=== PATIENT | female | born 1960 | race Caucasian/White ===

== ENCOUNTER → 2016-08-13 | Outpatient (CLI) | payer BC ==
[2016-08-13 07:49] LABS: Anisocytosis Slight; Basophils # (A) 0.1 k/uL (0-0.2); Basophils % (A) 1 %; CH 20.4; CHCM 27.7; Eosinophils # (A) 0.2 k/uL (0-0.7); Eosinophils % (A) 2 %; HCT 28.9 % (34.0-46.0); HDW 3.71; HGB 8.2 gm/dL (11.4-16.0); Hypochromasia Marked; Luc # (Auto) 0.22; Luc % (Auto) 4; Lymphocytes # (A) 1.5 k/uL (1.0-4.8); Lymphocytes % (A) 24 %; MCH 21.2 pg (25.0-35.0); MCHC 28.5 g/dL (31.0-37.0); MCV 74.2 fL (80.0-100.0); Mean Platelet Volume 6.5; Microcytosis Slight; Monocytes # (A) 0.3 k/uL (0-1.0); Monocytes % (A) 5 %; Neutrophils # (A) 4.1 k/uL (1.3-7.7); Neutrophils % (A) 64 %; Poikilocytosis Slight; RBC 3.89 m/uL (3.80-5.40); RDW 16.1 % (11.5-15.5); WBC 6.3 k/uL (3.8-10.6); WBC (Perox) 6.88
[2016-08-13 08:02] LABS: ALT 26 U/L (9-52); AST 16 U/L (14-36); Alkaline Phosphatase 88 U/L (38-126); Anion Gap 10 mmol/L; Blood Urea Nitrogen 16 mg/dL (7-17); Calcium 9.2 mg/dL (8.4-10.2); Carbon Dioxide 28 mmol/L (22-30); Chloride 104 mmol/L (98-107); Cholesterol 200 mg/dL (<200); Glucose 112 mg/dL (74-99); HDL Cholesterol 39 mg/dL (40-60); Non-African American GFR(MDRD) >60 (>60 ml/min/1.73 sqM); Potassium 4.2 mmol/L (3.5-5.1); Sodium 142 mmol/L (137-145); Total Bilirubin 0.4 mg/dL (0.2-1.3); Total Protein 6.9 g/dL (6.3-8.2); Triglycerides 254 mg/dL (<150)
[2016-08-13 10:54] LABS: Hemoglobin A1C 6.3 % (4.2-6.1)
== END | disposition home or self-care (01) ==
LOC: LABWHC1 07:22
PROVIDERS: ATTEND Family Medicine
DX: E11.9 Type 2 diabetes mellitus without complications (principal); E78.00 Pure hypercholesterolemia, unspecified; E03.9 Hypothyroidism, unspecified
CPT/HCPCS: 36415; 80053; 80061; 83036; 84439; 84443; 85025

== ENCOUNTER → 2016-08-16 | Outpatient (CLI) | payer BC ==
[2016-08-16 11:10] LABS: % Iron Saturation 4.2 % (20-50)
== END | disposition home or self-care (01) ==
LOC: LABWHC1 10:13
PROVIDERS: ATTEND Family Medicine
DX: D64.9 Anemia, unspecified (principal)
CPT/HCPCS: 36415; 82728; 83540; 83550

== ENCOUNTER 2016-08-29 08:01 | Day surgery (SDC) | payer BC ==
[2016-08-23 11:13] VITALS: BMI 37.4
[~2016-08-29 08:01] MED LIST: LACTATED RINGERS 1,000 ML IV SCH; LIDOCAINE 1% 20 ML VIAL (10MG/ML) FOR IV START INTRADERMA PRN
[2016-08-29 08:30] LABS: Glucose,Whole Blood 123 mg/dL (75-99)
[2016-08-29] MEDS ORDERED: ePHEDrine 50 MG/ML 1 ML AMP ONE (08:49)
[2016-08-29] MEDS ORDERED: PROPOFOL 10 MG/ML 20 ML VIAL IV ONE (08:49)
[2016-08-29] MEDS ORDERED: LIDOCAINE 1% INJ 10MG/ML (20 ML MDV) ONE (08:49)
--- NOTE | 2016-08-29 09:05 | P.GSHP ---
History of Present Illness H&P Date: 08/29/16 Chief Complaint: Anemia, screening Patient is here today for upper and lower endoscopy. She has recent findings of iron deficiency anemia. Denies rectal bleeding or melena. She had a previous upper endoscopy that was normal. Some chronic reflux symptoms. Past Medical History Past Medical History: Diabetes Mellitus, Hypertension, Osteoarthritis (OA), Thyroid Disorder Additional Past Medical History / Comment(s): anemia,intermittent nausea, chronic back pain,arthritis in back,hypothyroid History of Any Multi-Drug Resistant Organisms: None Reported Past Surgical History: Cholecystectomy, Uterine Ablation Additional Past Surgical History / Comment(s): uterine ablation 2006,EGD,D&C Past Anesthesia/Blood Transfusion Reactions: Previous Problems w/ Anesthesia, Family History of Problems w/ Anesthesia Additional Past Anesthesia/Blood Transfusion Reaction / Comment(s): mother has PONV,hx of migraine post anesthesia,no hx blood transfusion Past Psychological History: Depression Smoking Status: Never smoker Past Alcohol Use History: Occasional Past Drug Use History: None Reported - Past Family History Brother(s) Additional Family Medical History / Comment(s): ulcerative colitis Mother Family Medical History: Cancer, CVA/TIA, Myocardial Infarction ([place]) Additional Family Medical History / Comment(s): melanoma Father Family Medical History: Coronary Artery Disease (CAD) Medications and Allergies Home Medications Medication Instructions Recorded Confirmed Type Cetirizine HCl [Zyrtec] 10 mg PO DAILY 12/02/14 08/29/16 History Cholecalciferol [Vitamin D3] 1,000 unit PO DAILY 12/02/14 08/29/16 History Lansoprazole [Prevacid] 30 mg PO BID 12/02/14 08/29/16 History Levothyroxine Sodium [Synthroid] 150 mcg PO QAM 12/02/14 08/29/16 History SUMAtriptan SUCCINATE [Imitrex] 50 mg PO DAILY PRN 12/02/14 08/29/16 History Sertraline HCl [Zoloft] 200 mg PO QAM 12/02/14 08/29/16 History Triamterene/Hydrochlorothiazid 1 each PO DAILY 12/02/14 08/29/16 History [Dyazide 37.5-25 Capsule] metFORMIN HCL [Glucophage] 500 mg PO DAILY 12/02/14 08/29/16 History Aspirin/Acetaminophen/Caffeine 1 each PO DAILY PRN 04/19/15 08/29/16 History [Excedrin Extra Strength Caplet] Rosuvastatin Calcium [Crestor] 5 mg PO DAILY 04/19/15 08/29/16 History Cyanocobalamin (Vitamin B-12) 1,000 mcg PO DAILY 08/23/16 08/29/16 History [Vitamin B-12] Gabapentin [Neurontin] 600 mg PO HS PRN 08/23/16 08/29/16 History Ibuprofen/Diphenhydramine HCl 1 each PO DAILY PRN 08/23/16 08/29/16 History [Advil Pm Liqui-Gels] Prochlorperazine [Compazine] 10 mg PO Q8H PRN 08/23/16 08/29/16 History traMADol HCl [Ultram] 100 mg PO Q6H PRN 08/23/16 08/29/16 History Allergies Allergy/AdvReac Type Severity Reaction Status Date / Time nitrofurantoin Allergy Anaphylaxis Verified 08/23/16 11:01 [From Macrobid] nitrofurantoin Allergy Anaphylaxis Verified 08/23/16 11:01 macrocrystalline [From Macrobid] Penicillins Allergy Rash/Hives Verified 08/23/16 11:01 Sulfa (Sulfonamide Allergy Rash/Hives Verified 08/23/16 11:01 Antibiotics) Surgical - Exam Vital Signs Temp Pulse Resp BP Pulse Ox 98.2 F 84 16 130/78 95 08/29/16 08:24 08/29/16 08:24 08/29/16 08:24 08/29/16 08:24 08/29/16 08:24 Physical exam: General: Well-developed, well-nourished HEENT: Normocephalic, sclerae nonicteric Abdomen: Nontender, nondistended Extremities: No edema Neuro: Alert and oriented Results - Labs Abnormal Lab Results - Last 24 Hours (Table) 08/29/16 Range/Units 08:29 POC Glucose (mg/dL) 123 H (75-99) mg/dL Assessment and Plan (1) Anemia Narrative/Plan: Will proceed with upper and lower endoscopy. Status: Acute
--- NOTE | 2016-08-29 09:38 | P.PCN ---
Date of Procedure: 08/29/16 Procedure(s) Performed: PREOPERATIVE DIAGNOSIS: Anemia, screening POSTOPERATIVE DIAGNOSIS: Gastritis, hiatal hernia, colon polyps, diverticulosis PROCEDURE: 1. EGD with biopsy 2. Colonoscopy with snare polypectomy ANESTHESIA: MAC SURGEON: Puma Meyers M.D. SPECIMENS: Antrum, colon polyps ENDOSCOPIC PROCEDURE: The patient was on the endoscopy table in the left decubitus position. The Olympus gastroscope was inserted into the oropharynx and passed under direct visualization to the region of the third portion of the duodenum. From that point the scope was slowly withdrawn inspecting all surfaces carefully. There were no neoplastic inflammatory or polypoid lesions throughout the duodenum. The pylorus was widely patent. The stomach was carefully inspected. There was diffuse gastritis present. This did not appear to be severe enough to cause anemia however. Retroflexion revealed a moderate hiatal hernia. The stomach above the hiatus did not show any significant abnormalities. The esophagus was free of abnormalities. The patient was kept on the endoscopy table in the left decubitus position. The Olympus colonoscope was inserted into the anus and passed under direct visualization to the base of the cecum. The appendiceal orifice was visualized. From that point the scope was slowly withdrawn inspecting all surfaces carefully. There were no neoplastic inflammatory or polypoid lesions throughout the cecum and ascending colon. In the transverse colon a pedunculated polyp was identified and removed using the snare with cautery technique. The remainder of the transverse colon appeared normal. In the descending colon a small polyp was removed using the snare with cautery technique. The remainder of the descending sigmoid and rectum were free of abnormalities. The patient's prep was slightly suboptimal although I was able to remove most of the liquid stool present using the cook larder. There was mild diverticulosis seen. No definite source of anemia was identified during the colonoscopy. Digital rectal examination was normal. The patient was taken to the recovery room in stable condition per anesthesia guidelines. RECOMMENDATIONS: Wait biopsy results. Continue anemia workup.
[2016-08-29 09:50] VITALS: TEMP 98
[2016-08-29 09:54] LABS: Glucose,Whole Blood 112 mg/dL (75-99)
[2016-08-29 10:51] VITALS: RESP 18
[2016-08-29 11:23] VITALS: BP 127/76; PULSE 76
== END 2016-08-29 11:45 | disposition home or self-care (01) ==
LOC: ORWHC2ENDO 08:01
PROVIDERS: ATTEND Surgery
DX: Z12.11 Encounter for screening for malignant neoplasm of colon (principal); K29.50 Unspecified chronic gastritis without bleeding; K21.9 Gastro-esophageal reflux disease without esophagitis; D12.3 Benign neoplasm of transverse colon; D12.4 Benign neoplasm of descending colon; K57.30 Diverticulosis of large intestine without perforation or abscess without bleeding; Z83.79 Family history of other diseases of the digestive system; E78.5 Hyperlipidemia, unspecified; I10 Essential (primary) hypertension; E11.9 Type 2 diabetes mellitus without complications; Z79.84 Long term (current) use of oral hypoglycemic drugs; E03.9 Hypothyroidism, unspecified; F32.9 Major depressive disorder, single episode, unspecified; E66.01 Morbid (severe) obesity due to excess calories; Z68.37 Body mass index [BMI] 37.0-37.9, adult; Z79.899 Other long term (current) drug therapy; Z88.1 Allergy status to other antibiotic agents; Z88.0 Allergy status to penicillin; Z88.2 Allergy status to sulfonamides
CPT/HCPCS: 81025; 88305; 88342; 45385; 43239; J2001; J2704

== ENCOUNTER → 2017-01-04 | Outpatient (CLI) | payer BC ==
[2017-01-04 13:44] LABS: Basophils # (A) 0.1 k/uL (0-0.2); Basophils % (A) 1 %; CHCM 33.6; Eosinophils # (A) 0.1 k/uL (0-0.7); Eosinophils % (A) 1 %; HCT 45.4 % (34.0-46.0); HDW 2.67; HGB 15.5 gm/dL (11.4-16.0); Luc # (Auto) 0.13; Luc % (Auto) 2; Lymphocytes # (A) 1.2 k/uL (1.0-4.8); Lymphocytes % (A) 17 %; MCH 30.4 pg (25.0-35.0); MCHC 34.1 g/dL (31.0-37.0); MCV 89.2 fL (80.0-100.0); Mean Platelet Volume 7.3; Monocytes # (A) 0.3 k/uL (0-1.0); Monocytes % (A) 4 %; Neutrophils # (A) 5.4 k/uL (1.3-7.7); Neutrophils % (A) 75 %; RBC 5.08 m/uL (3.80-5.40); RDW 15.6 % (11.5-15.5); WBC 7.2 k/uL (3.8-10.6); WBC (Perox) 7.53
== END | disposition home or self-care (01) ==
LOC: LABWHC1 13:04
PROVIDERS: ATTEND Urology
DX: D64.89 Other specified anemias (principal)
CPT/HCPCS: 36415; 83540; 85025

== ENCOUNTER → 2017-02-07 | Outpatient (CLI) | payer BC ==
[2017-02-07 08:20] LABS: ALT 39 U/L (9-52); AST 21 U/L (14-36); Alkaline Phosphatase 113 U/L (38-126); Anion Gap 11 mmol/L; Blood Urea Nitrogen 15 mg/dL (7-17); Calcium 9.9 mg/dL (8.4-10.2); Carbon Dioxide 28 mmol/L (22-30); Chloride 102 mmol/L (98-107); Cholesterol 231 mg/dL (<200); Glucose 128 mg/dL (74-99); HDL Cholesterol 45 mg/dL (40-60); Non-African American GFR(MDRD) >60 (>60 ml/min/1.73 sqM); Potassium 4.6 mmol/L (3.5-5.1); Sodium 141 mmol/L (137-145); Total Bilirubin 0.4 mg/dL (0.2-1.3); Total Protein 6.8 g/dL (6.3-8.2)
[2017-02-07 12:17] LABS: Hemoglobin A1C 6.3 % (4.2-6.1)
== END | disposition home or self-care (01) ==
LOC: LABWHC1 07:18
PROVIDERS: ATTEND Family Medicine
DX: E78.00 Pure hypercholesterolemia, unspecified (principal); E11.9 Type 2 diabetes mellitus without complications
CPT/HCPCS: 36415; 80053; 80061; 83036

== ENCOUNTER → 2017-05-18 | Outpatient (CLI) | payer BC ==
[2017-05-18 10:33] LABS: Basophils # (A) 0.1 k/uL (0-0.2); Basophils % (A) 1 %; Eosinophils # (A) 0.1 k/uL (0-0.7); Eosinophils % (A) 1 %; HCT 45.1 % (34.0-46.0); HGB 15.3 gm/dL (11.4-16.0); Lymphocytes # (A) 1.4 k/uL (1.0-4.8); Lymphocytes % (A) 20 %; MCH 31.6 pg (25.0-35.0); MCHC 33.9 g/dL (31.0-37.0); MCV 93.1 fL (80.0-100.0); Monocytes # (A) 0.3 k/uL (0-1.0); Monocytes % (A) 5 %; Neutrophils # (A) 4.7 k/uL (1.3-7.7); Neutrophils % (A) 71 %; Platelet Count 316 k/uL (150-450); RBC 4.85 m/uL (3.80-5.40); RDW 13.5 % (11.5-15.5); WBC 6.6 k/uL (3.8-10.6)
[2017-05-18 20:22] LABS: Hemoglobin A1C 5.8 % (4.0-6.0)
== END | disposition home or self-care (01) ==
LOC: LABWHC1 10:08
PROVIDERS: ATTEND Family Medicine
DX: D64.9 Anemia, unspecified (principal); E11.9 Type 2 diabetes mellitus without complications
CPT/HCPCS: 36415; 83036; 85025

== ENCOUNTER → 2017-08-28 | Outpatient (CLI) | payer BC ==
[2017-08-28 08:06] LABS: Basophils # (A) 0.1 k/uL (0-0.2); Basophils % (A) 1 %; Eosinophils # (A) 0.2 k/uL (0-0.7); Eosinophils % (A) 2 %; HCT 43.2 % (34.0-46.0); HGB 14.6 gm/dL (11.4-16.0); Lymphocytes # (A) 1.3 k/uL (1.0-4.8); Lymphocytes % (A) 17 %; MCH 30.5 pg (25.0-35.0); MCHC 33.7 g/dL (31.0-37.0); MCV 90.6 fL (80.0-100.0); Mean Platelet Volume 7.8; Monocytes # (A) 0.3 k/uL (0-1.0); Monocytes % (A) 5 %; Neutrophils # (A) 5.8 k/uL (1.3-7.7); Neutrophils % (A) 75 %; Platelet Count 351 k/uL (150-450); RBC 4.77 m/uL (3.80-5.40); RDW 13.1 % (11.5-15.5); WBC 7.7 k/uL (3.8-10.6)
[2017-08-28 08:24] LABS: ALT 22 U/L (9-52); AST 21 U/L (14-36); Albumin 4.2 g/dL (3.5-5.0); Alkaline Phosphatase 98 U/L (38-126); Anion Gap 12 mmol/L; Blood Urea Nitrogen 16 mg/dL (7-17); Calcium 9.7 mg/dL (8.4-10.2); Carbon Dioxide 29 mmol/L (22-30); Chloride 102 mmol/L (98-107); Cholesterol 268 mg/dL (<200); Glucose 122 mg/dL (74-99); HDL Cholesterol 39 mg/dL (40-60); LDL Cholesterol,Calculated 160 mg/dL (0-99); Potassium 4.1 mmol/L (3.5-5.1); Sodium 143 mmol/L (137-145); Total Bilirubin 0.3 mg/dL (0.2-1.3); Total Protein 6.7 g/dL (6.3-8.2); Triglycerides 343 mg/dL (<150)
[2017-08-28 12:02] LABS: Hemoglobin A1C 5.9 % (4.0-6.0)
--- NOTE | 2017-08-29 10:08 | MM ---
Reason for exam: screening (asymptomatic). Last mammogram was performed 1 year and 9 months ago. History: Patient is postmenopausal and had first child at age 34. Family history of breast cancer in maternal grandmother at age 70. Took hormonal contraceptives for 12 years beginning at age 21. Physical Findings: A clinical breast exam by your physician is recommended on an annual basis and results should be correlated with mammographic findings. MG Screening Mammo w CAD Bilateral CC and MLO view(s) were taken. Prior study comparison: December 06, 2015, bilateral MG screening mammo w CAD. July 15, 2014, bilateral MG screening mammo w CAD. Benign calcifications bilaterally. There is chronic nodularity in the left breast. No significant changes when compared with prior studies. ASSESSMENT: Benign, BI-RAD 2 RECOMMENDATION: Routine screening mammogram of both breasts in 1 year.
== END | disposition home or self-care (01) ==
LOC: RADMAMWWP 07:31
PROVIDERS: ATTEND Family Medicine
DX: Z12.31 Encounter for screening mammogram for malignant neoplasm of breast (principal); E03.9 Hypothyroidism, unspecified; E11.9 Type 2 diabetes mellitus without complications; E78.00 Pure hypercholesterolemia, unspecified; D64.9 Anemia, unspecified
CPT/HCPCS: 36415; 77067; 80053; 80061; 83036; 84439; 84443; 85025

== ENCOUNTER → 2018-07-14 | Outpatient (CLI) | payer MEDICAID ==
[2018-07-14 11:22] LABS: LDL Cholesterol,Calculated 146.2 mg/dL (0.0-131.0); VLDL Calculation 50.8 mg/dL (5.00-40.00)
[2018-07-14 11:23] LABS: Albumin 4.6 g/dL (3.80-4.90); Albumin/Globulin Ratio 2.42 (1.60-3.17); Anion Gap 9.3 mmol/L (4.00-12.00); Calcium 9.7 mg/dL (8.7-10.3); Carbon Dioxide 30.7 mmol/L (21.6-31.8); Globulin 1.9 g/dL (1.6-3.3); Total Bilirubin 0.2 mg/dL (0.2-1.2); Total Protein 6.5 g/dL (6.2-8.2)
[2018-07-14 15:18] LABS: Hemoglobin A1C 6.1 % (4.0-6.0)
== END | disposition home or self-care (01) ==
LOC: LABWHC1 06:45
PROVIDERS: ATTEND Family Medicine
DX: E78.00 Pure hypercholesterolemia, unspecified (principal); E11.9 Type 2 diabetes mellitus without complications
CPT/HCPCS: 36415; 80053; 80061; 83036

== ENCOUNTER → 2018-11-27 | Outpatient (CLI) | payer MEDICAID ==
[2018-11-27 08:15] LABS: Basophils # (A) 0.1 k/uL (0-0.2); Basophils % (A) 1 %; Eosinophils # (A) 0.3 k/uL (0-0.7); Eosinophils % (A) 4 %; HCT 44.2 % (34.0-46.0); HGB 14.6 gm/dL (11.4-16.0); Lymphocytes # (A) 1.5 k/uL (1.0-4.8); Lymphocytes % (A) 21 %; MCH 30.8 pg (25.0-35.0); MCHC 33.1 g/dL (31.0-37.0); Mean Platelet Volume 7.7; Monocytes # (A) 0.4 k/uL (0-1.0); Monocytes % (A) 5 %; Neutrophils # (A) 4.8 k/uL (1.3-7.7); Neutrophils % (A) 67 %; Platelet Count 342 k/uL (150-450); RBC 4.75 m/uL (3.80-5.40); RDW 12.8 % (11.5-15.5); WBC 7.2 k/uL (3.8-10.6)
[2018-11-27 08:18] LABS: ALT 25 U/L (9-52); AST 23 U/L (14-36); African American GFR (CKD) >90 (>60 ml/min/1.73 sqM); Albumin 4.2 g/dL (3.5-5.0); Alkaline Phosphatase 92 U/L (38-126); Anion Gap 8 mmol/L; Blood Urea Nitrogen 29 mg/dL (7-17); Calcium 10.5 mg/dL (8.4-10.2); Carbon Dioxide 32 mmol/L (22-30); Chloride 99 mmol/L (98-107); Cholesterol 232 mg/dL (<200); Glucose 131 mg/dL (74-99); HDL Cholesterol 40 mg/dL (40-60); LDL Cholesterol,Calculated 135 mg/dL (0-99); Potassium 3.9 mmol/L (3.5-5.1); Sodium 139 mmol/L (137-145); Total Bilirubin 0.4 mg/dL (0.2-1.3); Total Protein 6.9 g/dL (6.3-8.2); Triglycerides 284 mg/dL (<150)
[2018-11-27 17:59] LABS: Hemoglobin A1C 6.2 % (4.0-6.0)
--- NOTE | 2018-12-01 09:33 | MM ---
Reason for exam: screening (asymptomatic). Last mammogram was performed 1 year and 3 months ago. History: Patient is postmenopausal and had first child at age 34. Family history of breast cancer in maternal grandmother at age 70. Took hormonal contraceptives for 12 years beginning at age 21. Physical Findings: A clinical breast exam by your physician is recommended on an annual basis and results should be correlated with mammographic findings. MG Screening Mammo w CAD Bilateral CC and MLO view(s) were taken. Prior study comparison: August 28, 2017, bilateral MG screening mammo w CAD. December 06, 2015, bilateral MG screening mammo w CAD. No significant changes when compared with prior studies. ASSESSMENT: Benign, BI-RAD 2 RECOMMENDATION: Routine screening mammogram of both breasts in 1 year.
== END | disposition home or self-care (01) ==
LOC: RADMAMWWP 07:17
PROVIDERS: ATTEND Family Medicine
DX: Z12.31 Encounter for screening mammogram for malignant neoplasm of breast (principal); E78.00 Pure hypercholesterolemia, unspecified; E11.9 Type 2 diabetes mellitus without complications; E03.9 Hypothyroidism, unspecified
CPT/HCPCS: 77067; 80053; 80061; 83036; 84443; 85025

== ENCOUNTER 2018-12-05 16:09 | Emergency (ER) | payer OTHER, MEDICAID ==
[2018-12-05 16:23] VITALS: BP 119/82; PULSE 111; RESP 18; TEMP 97.9
[2018-12-05] MEDS ORDERED: DIPH,PERTUS(ACELL)TETVAC-LF 0.5 ML VIAL IM ONE (16:37)
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
== END 2018-12-05 17:12 | disposition home or self-care (01) ==
LOC: EC 16:09
DX: S50.811A Abrasion of right forearm, initial encounter (principal); M25.511 Pain in right shoulder; E11.9 Type 2 diabetes mellitus without complications; I10 Essential (primary) hypertension; E03.9 Hypothyroidism, unspecified; F32.9 Major depressive disorder, single episode, unspecified; Z88.0 Allergy status to penicillin; Z88.1 Allergy status to other antibiotic agents; Z88.2 Allergy status to sulfonamides; Z79.84 Long term (current) use of oral hypoglycemic drugs; Z79.890 Hormone replacement therapy; Z79.899 Other long term (current) drug therapy; Z87.19 Personal history of other diseases of the digestive system; Z23 Encounter for immunization; V43.52XA Car driver injured in collision with other type car in traffic accident, initial encounter; Y93.89 Activity, other specified; Y92.410 Unspecified street and highway as the place of occurrence of the external cause
CPT/HCPCS: 90471; 90715; 99283

== ENCOUNTER → 2019-05-18 | Outpatient (CLI) | payer MEDICAID ==
[2019-05-18 11:30] LABS: African American GFR (CKD) 95.5 (60.0-200.0); Albumin 4.4 g/dL (3.80-4.90); Albumin/Globulin Ratio 2.44 (1.60-3.17); Anion Gap 6.2 mmol/L (4.00-12.00); Calcium 9.6 mg/dL (8.7-10.3); Carbon Dioxide 27.8 mmol/L (21.6-31.8); Chol/HDL Ratio 5.45; Globulin 1.8 g/dL (1.6-3.3); LDL Cholesterol,Calculated 138.8 mg/dL (0.0-131.0); Non-African American GFR(CKD) 82.4 (60.0-200.0); Potassium 4.7 mmol/L (3.5-5.5); Total Bilirubin 0.4 mg/dL (0.3-1.2); Total Protein 6.2 g/dL (6.2-8.2); VLDL Calculation 57.2 mg/dL (5.00-40.00)
[2019-05-18 14:09] LABS: Hemoglobin A1C 5.9 % (4.0-6.0)
== END | disposition home or self-care (01) ==
LOC: LABWHC1 07:26
PROVIDERS: ATTEND Family Medicine
DX: E11.9 Type 2 diabetes mellitus without complications (principal); E78.00 Pure hypercholesterolemia, unspecified
CPT/HCPCS: 36415; 80053; 80061; 83036

== ENCOUNTER → 2019-12-07 | Outpatient (CLI) | payer MEDICAID | END | disposition home or self-care (01) | LOC: RADECHMAIN 12:21 | PROVIDERS: ATTEND Family Medicine | DX: R00.2 Palpitations (principal); Z88.6 Allergy status to analgesic agent | CPT/HCPCS: 93225; 93226 ==

== ENCOUNTER → 2020-06-22 | Outpatient (CLI) | payer MEDICAID ==
--- NOTE | 2020-06-22 18:44 | BD ---
EXAMINATION TYPE: Axial Bone Density DATE OF EXAM: 06/22/2020 COMPARISON: NONE CLINICAL HISTORY: 59-year-old female postmenopausal screening Height: 5 FT 5 1/2 IN Weight: 220 FRAX RISK QUESTIONS: Alcohol (3 or more units per day): NO Family History (Parent hip fracture): NO Glucocorticoids (More than 3mos): NO (Ex: prednisone, prednisolone, methylprednisolone, dexamethasone, and hydrocortisone). History of Fracture in Adulthood: NO Secondary Osteoporosis: 1. Type 1 Diabetes: NO 2. Hyperthyroidism: NO 3. Menopause before 45: YES 4. Malnutrition: NO 5. Chronic liver disease: NO Rheumatoid Arthritis: NO Current Tobacco Use: NO RISK FACTORS HISTORY OF: Family History of Osteoporosis: NO Active: NO Diet low in dairy products/other sources of calcium: NO Postmenopausal woman: AGE 45 Take estrogen and/or progesterone medications: NONE Lost more than 2 inches in height since high school: NO MEDICATIONS: Thyroid Medications: YE Which medication: SYNTHROID How Long: APPROX 22 YEARS Additional Medications: SYNTHROID, METFORMIN, PREVACID, CRESTOR, ZOLOFT, BUSPAR, GABAPENTIN, DIAZIDE ,COQ10, ZYRTEC, FLEXERIL NEEDED, IMITREX NEEDED, VIT D3, IRON Additional History: EXAM MEASUREMENTS: Bone mineral densitometry was performed using the [employer] System. Bone mineral density as measured about the Lumbar spine is: ----- L1-L4(G/cm2): 1.336 T Score Values are as follows: ----- L2: 0.9 ----- L3: 2.0 ----- L4: 1.9 ----- L1-L4: 1.3 BASELINE Bone mineral density about the R hip (g/cm2): 1.143 Bone mineral density about the L hip (g/cm2): 1.130 T Score values are as follows: -----R Neck: 0.8 -----L Neck: 0.7 -----R Total: 2.1 -----L Total: 2.3 BASELINE IMPRESSION: Normal (Values between +1 and -1 indicate normal bone mass). Consider repeating this study in 5 year s or sooner if there is some new clinical indication. NOTE: T-SCORE=SD OF THE YOUNG ADULT MEAN.
--- NOTE | 2020-06-24 13:45 | MM ---
Reason for exam: screening (asymptomatic). Last mammogram was performed 1 year and 7 months ago. History: Patient is postmenopausal and had first child at age 34. Family history of breast cancer in maternal grandmother at age 70. Took hormonal contraceptives for 12 years beginning at age 21. Physical Findings: A clinical breast exam by your physician is recommended on an annual basis and results should be correlated with mammographic findings. MG Screening Mammo w CAD Bilateral CC, MLO, and XCCL view(s) were taken. Prior study comparison: November 27, 2018, bilateral MG screening mammo w CAD. August 28, 2017, bilateral MG screening mammo w CAD. There are scattered fibroglandular densities. There is no discrete abnormality. No significant changes when compared with prior studies. ASSESSMENT: Negative, BI-RAD 1 RECOMMENDATION: Routine screening mammogram of both breasts in 1 year.
== END | disposition home or self-care (01) ==
LOC: RADBDWWP 07:25
PROVIDERS: ATTEND Family Medicine
DX: Z12.31 Encounter for screening mammogram for malignant neoplasm of breast (principal); Z78.0 Asymptomatic menopausal state
CPT/HCPCS: 77067; 77080

== ENCOUNTER → 2020-10-18 | Outpatient (CLI) | payer MEDICAID ==
[2020-10-18 11:29] LABS: Basophils # (A) 0.06 X 10*3/uL (0.00-0.10); Basophils % (A) 0.7 %; Eosinophils # (A) 0.21 X 10*3/uL (0.04-0.35); Eosinophils % (A) 2.6 %; HCT 42.6 % (37.2-46.3); HGB 13.8 g/dL (12.0-15.0); Lymphocytes # (A) 1.72 X 10*3/uL (0.90-5.00); Lymphocytes % (A) 21.3 %; MCH 31.1 pg (27.0-32.0); MCHC 32.4 g/dL (32.0-37.0); MCV 95.9 fL (80.0-97.0); Mean Platelet Volume 11.4 fL (9.5-12.2); Monocytes # (A) 0.47 X 10*3/uL (0.20-1.00); Monocytes % (A) 5.8 %; Neutrophils # (A) 5.57 X 10*3/uL (1.80-7.70); Neutrophils % (A) 69.2 %; Platelet Count 342 X 10*3/uL (140-440); RBC 4.44 X 10*6/uL (4.10-5.20); RDW 12.7 % (11.5-14.5); WBC 8.06 X 10*3/uL (4.50-10.00)
[2020-10-18 16:00] LABS: African American GFR (CKD) 94.2 (60.0-200.0); Albumin 4.1 g/dL (3.80-4.90); Albumin/Globulin Ratio 1.95 (1.60-3.17); Anion Gap 9.2 mmol/L (4.00-12.00); BUN/Creat Ratio 26.25 Ratio (12.00-20.00); Calcium 9.1 mg/dL (8.7-10.3); Carbon Dioxide 22.8 mmol/L (21.6-31.8); Chol/HDL Ratio 5.36; Globulin 2.1 g/dL (1.6-3.3); Non-African American GFR(CKD) 81.3 (60.0-200.0); Potassium 3.9 mmol/L (3.5-5.5); Total Bilirubin 0.3 mg/dL (0.2-1.2); Total Protein 6.2 g/dL (6.2-8.2)
== END | disposition home or self-care (01) ==
LOC: LABWHC1 07:04
PROVIDERS: ATTEND Family Medicine
DX: E03.9 Hypothyroidism, unspecified (principal); E11.9 Type 2 diabetes mellitus without complications; E78.00 Pure hypercholesterolemia, unspecified
CPT/HCPCS: 36415; 80053; 80061; 83036; 84443; 85025

== ENCOUNTER 2021-04-24 11:33 | Emergency (ER) | payer MEDICAID ==
[2021-04-24 12:02] VITALS: BP 115/75; PULSE 100; RESP 18; TEMP 99
--- NOTE | 2021-04-24 12:39 | ED ---
General Adult HPI - General Chief complaint: Fall Stated complaint: fall 5 days ago, facial injury Time Seen by Provider: 04/24/21 12:30 Source: patient, RN notes reviewed, old records reviewed Mode of arrival: ambulatory Limitations: no limitations - History of Present Illness Initial comments: 60-year-old female presents to the emergency room with complaints of right-sided facial pain. Patient states that she tripped on a step walking into a gas station falling forward and hitting her face last week. She states that she continues to have right-sided facial pain along her jaw and right orbit and shoots into her right ear and down into the right side of her neck. She denies any fevers. She states that she did initially have an abrasion to her top lip. She denies any vision changes. She is concerned for facial fracture. -: week(s) (1) Location: face (right side jaw, orbit and ear pain) Radiation: neck Severity scale (1-10): 7 Quality: sharp, other (shooting) Improves with: none Worsens with: movement Associated Symptoms: denies other symptoms Treatments Prior to Arrival: NSAID - Related Data Home Medications Medication Instructions Recorded Confirmed Cetirizine HCl [Zyrtec] 10 mg PO DAILY 12/02/14 04/24/21 Lansoprazole [Prevacid] 30 mg PO BID 12/02/14 04/24/21 SUMAtriptan succinate [Imitrex] 50 mg PO DAILY PRN 12/02/14 04/24/21 Sertraline HCl [Zoloft] 200 mg PO DAILY 12/02/14 04/24/21 Triamterene/Hydrochlorothiazid 1 cap PO DAILY 12/02/14 04/24/21 [Dyazide 37.5-25 Capsule] metFORMIN HCL [Glucophage] 500 mg PO DAILY 12/02/14 04/24/21 Gabapentin [Neurontin] 600 mg PO HS PRN 08/23/16 04/24/21 Cholecalciferol [Vitamin D3 (25 25 mcg PO DAILY 04/24/21 04/24/21 Mcg = 1000 Iu)] Cyclobenzaprine [Flexeril] 5 mg PO BID PRN 04/24/21 04/24/21 Gabapentin 300 mg PO BID@0900,1200 04/24/21 04/24/21 Levothyroxine Sodium [Synthroid] 150 mcg PO DAILY 04/24/21 04/24/21 Rosuvastatin Calcium [Crestor] 5 mg PO DAILY 04/24/21 04/24/21 Ubidecarenone [Co Q-10] 100 mg PO DAILY 04/24/21 04/24/21 Vitamin E 400 unit PO DAILY 04/24/21 04/24/21 busPIRone HCl [Buspar] 5 mg PO BID 04/24/21 04/24/21 Previous Rx's Medication Instructions Recorded Ibuprofen [Motrin] 600 mg PO Q8HR PRN #30 tab 04/24/21 Allergies Allergy/AdvReac Type Severity Reaction Status Date / Time nitrofurantoin Allergy Anaphylaxis Verified 04/24/21 14:27 [From Macrobid] nitrofurantoin Allergy Anaphylaxis Verified 04/24/21 14:27 macrocrystalline [From Macrobid] Penicillins Allergy Rash/Hives Verified 04/24/21 14:27 Sulfa (Sulfonamide Allergy Rash/Hives Verified 04/24/21 14:27 Antibiotics) tramadol [From Ultram] Allergy Unknown Verified 04/24/21 14:27 codeine AdvReac Nausea Verified 04/24/21 14:27 Review of Systems ROS Statement: Those systems with pertinent positive or pertinent negative responses have been documented in the HPI. ROS Other: All systems not noted in ROS Statement are negative. Past Medical History Past Medical History: Diabetes Mellitus, Hypertension, Osteoarthritis (OA), Thyroid Disorder Additional Past Medical History / Comment(s): anemia,intermittent nausea, chronic back pain,arthritis in back,hypothyroid History of Any Multi-Drug Resistant Organisms: ESBL Date of last positivie culture/infection: 04/18/18 MDRO Source:: esbl urine Past Surgical History: Cholecystectomy, Uterine Ablation Additional Past Surgical History / Comment(s): uterine ablation 2006,EGD,D&C Past Anesthesia/Blood Transfusion Reactions: Previous Problems w/ Anesthesia, Family History of Problems w/ Anesthesia Additional Past Anesthesia/Blood Transfusion Reaction / Comment(s): mother has PONV,hx of migraine post anesthesia,no hx blood transfusion Past Psychological History: Depression Smoking Status: Never smoker Past Alcohol Use History: Occasional Past Drug Use History: None Reported - Past Family History Brother(s) Additional Family Medical History / Comment(s): ulcerative colitis Mother Family Medical History: Cancer, CVA/TIA, Myocardial Infarction ([place]) Additional Family Medical History / Comment(s): melanoma Father Family Medical History: Coronary Artery Disease (CAD) General Exam Limitations: no limitations General appearance: alert, in no apparent distress Head exam: Present: atraumatic, normocephalic, normal inspection Eye exam: Present: normal appearance, EOMI, periorbital tenderness (Right side). Absent: scleral icterus, conjunctival injection, periorbital swelling ENT exam: Present: normal exam, normal oropharynx, mucous membranes moist Neck exam: Present: normal inspection, tenderness (Right side), full ROM. Absent: meningismus, lymphadenopathy, thyromegaly Cardiovascular Exam: Present: regular rate, normal rhythm, normal heart sounds. Absent: systolic murmur, diastolic murmur, rubs, gallop, clicks Extremities exam: Present: normal inspection, full ROM, normal capillary refill. Absent: tenderness, pedal edema, joint swelling, calf tenderness Neurological exam: Present: alert, oriented X3, normal gait Psychiatric exam: Present: normal affect, normal mood, anxious Skin exam: Present: warm, dry, intact, normal color. Absent: rash, cyanosis, diaphoretic Course Vital Signs 04/24/21 11:56 Temperature 99.0 F Pulse Rate 100 Respiratory 18 Rate Blood Pressure 115/75 O2 Sat by Pulse 96 Oximetry Medical Decision Making - Medical Decision Making 60-year-old female presents to the emergency room with complaints of right-sided facial pain after a trip and fall last week. She states that she continues to have right-sided facial pain. CT of the facial bones shows no evidence of fracture. No focal neurological deficits. She was directed to continue Tylenol and or Motrin for pain and follow up with her primary care doctor next week. Case discussed with Dr. Francis. Disposition Clinical Impression: Facial pain Disposition: HOME SELF-CARE Condition: Good Instructions (If sedation given, give patient instructions): Musculoskeletal Pain (ED) Additional Instructions: Take Tylenol and/or Motrin as needed for pain. Follow-up with your primary care doctor next week. Prescriptions: Ibuprofen [Motrin] 600 mg PO Q8HR PRN #30 tab PRN Reason: Pain Is patient prescribed a controlled substance at d/c from ED?: No Referrals: Dawna Meyers MD [Primary Care Provider] - 1-2 days Time of Disposition: 14:17
[2021-04-24] MEDS ORDERED: KETOROLAC 15 MG/ML 1 ML VIAL IM STA (12:44)
--- NOTE | 2021-04-24 14:12 | CT ---
EXAMINATION TYPE: CT facial bones wo con DATE OF EXAM: 04/24/2021 COMPARISON: None HISTORY: fall with right side facial trauma, along zygomatic arch, extending inferiorly along mandibl e CT DLP: 460.7 mGycm Automated exposure control for dose reduction was used. TECHNIQUE: CT scan of the sinuses is performed without contrast, axial images are obtained, coronal r eformatted images are also reviewed. FINDINGS: The paranasal sinuses including the frontal, ethmoid, sphenoid, and maxillary sinuses bila terally are well-aerated without abnormal opacification. The ostiomeatal complex is patent bilateral ly on the coronal images. Visualized portion of mastoid air cells show no abnormal opacification. The globes are intact bilate rally. Atherosclerotic change. Hypertrophic degenerative change cervical spine. Metallic dental kal fact noted. Intracranial structures IMPRESSION: 1. No acute fracture.
== END 2021-04-24 14:27 | disposition home or self-care (01) ==
LOC: EC 11:33
DX: G50.1 Atypical facial pain (principal); E11.9 Type 2 diabetes mellitus without complications; I10 Essential (primary) hypertension; M19.90 Unspecified osteoarthritis, unspecified site; E07.9 Disorder of thyroid, unspecified; F32.A Depression, unspecified; Z79.84 Long term (current) use of oral hypoglycemic drugs; Z88.2 Allergy status to sulfonamides; Z88.0 Allergy status to penicillin; Z88.5 Allergy status to narcotic agent; Z90.49 Acquired absence of other specified parts of digestive tract
CPT/HCPCS: 70486; 96372; 99283

== ENCOUNTER → 2021-08-31 | Outpatient (CLI) | payer MEDICAID ==
--- NOTE | 2021-09-01 14:02 | MM ---
Reason for exam: screening (asymptomatic). Last mammogram was performed 1 year and 2 months ago. History: Patient is postmenopausal and had first child at age 34. Family history of breast cancer in maternal grandmother at age 70. Took hormonal contraceptives for 12 years beginning at age 21. Physical Findings: A clinical breast exam by your physician is recommended on an annual basis and results should be correlated with mammographic findings. MG Screening Mammo w CAD Bilateral CC and MLO view(s) were taken. XCCL view(s) were taken of the right breast. Prior study comparison: June 22, 2020, bilateral MG screening mammo w CAD. November 27, 2018, bilateral MG screening mammo w CAD. The breast tissue is heterogeneously dense. This may lower the sensitivity of mammography. Focal asymmetry upper left MLO view. This finding is changed when compared with previous exams. ASSESSMENT: Incomplete: need additional imaging evaluation, BI-RAD 0 RECOMMENDATION: Special view mammogram of the left breast. If lesion persists on supplemental views, image directed ultrasound is recommended. [facility] will attempt to contact patient to return for supplemental views and ultrasound if indicated.
== END | disposition home or self-care (01) ==
LOC: RADMAMWWP 07:44
PROVIDERS: ATTEND Family Medicine
DX: Z12.31 Encounter for screening mammogram for malignant neoplasm of breast (principal); Z78.0 Asymptomatic menopausal state; Z80.3 Family history of malignant neoplasm of breast
CPT/HCPCS: 77067

== ENCOUNTER → 2021-09-06 | Outpatient (CLI) | payer MEDICAID ==
--- NOTE | 2021-09-06 12:25 | MM ---
Reason for exam: additional evaluation requested from abnormal screening. Last mammogram was performed less than 1 month ago. History: Patient is postmenopausal and had first child at age 34. Family history of breast cancer in maternal grandmother at age 70 and breast cancer in aunt. Took hormonal contraceptives for 12 years beginning at age 21. Physical Findings: A clinical breast exam by your physician is recommended on an annual basis and results should be correlated with mammographic findings. MG 3D Work Up W/Cad LT Spot compression MLO view(s) were taken of the left breast. Prior study comparison: August 31, 2021, bilateral MG screening mammo w CAD. June 22, 2020, bilateral MG screening mammo w CAD. There is no discrete abnormality including area of concern. Results were given to the patient verbally at the time of the exam. ASSESSMENT: Probably benign, BI-RAD 3 RECOMMENDATION: Follow-up diagnostic mammogram of the left breast in 6 months.
== END | disposition home or self-care (01) ==
LOC: RADMAMWWP 07:37
PROVIDERS: ATTEND Family Medicine
DX: R92.8 Other abnormal and inconclusive findings on diagnostic imaging of breast (principal); Z78.0 Asymptomatic menopausal state; Z80.3 Family history of malignant neoplasm of breast
CPT/HCPCS: 77061; 77065

== ENCOUNTER → 2022-04-09 | Outpatient (CLI) | payer MEDICAID ==
--- NOTE | 2022-04-09 09:26 | MM ---
Reason for Exam: Follow-up at short interval from prior study. Last screening mammogram was performed 7 month(s) ago. Patient History: Menarche at age 13. First Full-Term at age 34. Late child-bearing (after 30). Postmenopausal. Hormonal Contraceptives for 12 years from age 21 until age 33. Maternal grandmother had breast cancer, age 70. Maternal aunt had breast cancer. Risk Values: Angela 5 year model risk: 2.1%. NCI Lifetime model risk: 11.2%. Prior Study Comparison: 07/18/2010 Bilateral Screening Mammogram, [facility]. 09/19/2011 Bilateral Screening Mammogram, [facility]. 09/26/2011 Left Diagnostic Mammogram, [facility]. 03/11/2012 Left Diagnostic Mammogram, [facility]. 05/18/2013 Bilateral Screening Mammogram, [facility]. 07/15/2014 Bilateral Screening Mammogram, [facility] 12/06/2015 Bilateral Screening Mammogram, [facility]. 08/28/2017 Bilateral Screening Mammogram, [facility]. 11/27/2018 Bilateral Screening Mammogram, [facility]. 06/22/2020 Bilateral Screening Mammogram, [facility]. 08/31/2021 Bilateral Screening Mammogram, [facility]. 09/06/2021 Left Diagnostic Mammogram, [facility]. Tissue Density: Left: There are scattered fibroglandular densities. Findings: Analyzed By CAD. Area of concern within the left breast compresses out on compression views. Findings most consistent with overlapping fibroglandular tissue.Area of concern within the left breast compresses out on compression views. Findings most consistent with overlapping fibroglandular tissue. No suspicious masses, calcifications or distortions. Overall Assessment: Benign, BI-RAD 2 Management: Screening Mammogram of both breasts in 1 year. A clinical breast exam by your physician is recommended on an annual basis and results should be correlated with mammographic findings. This exam should not preclude additional follow-up of suspicious palpable abnormalities. Results were given to the patient verbally at the time of exam. Electronically signed and approved by: Everardo Munoz DO
== END | disposition home or self-care (01) ==
LOC: RADMAMWWP 07:28
PROVIDERS: ATTEND Family Medicine
DX: R92.8 Other abnormal and inconclusive findings on diagnostic imaging of breast (principal); Z80.3 Family history of malignant neoplasm of breast; Z78.0 Asymptomatic menopausal state
CPT/HCPCS: 77061; 77065

== ENCOUNTER → 2022-05-08 | Outpatient (CLI) | payer MEDICAID ==
[2022-05-08 10:51] LABS: ALT 14 U/L (8-44); AST 12 U/L (13-35); African American GFR (CKD) 109.9 (60.0-200.0); Albumin 4.1 g/dL (3.8-4.9); Albumin/Globulin Ratio 2.05 (1.60-3.17); Alkaline Phosphatase 78 U/L (41-126); BUN/Creat Ratio 42.43 Ratio (12.00-20.00); Blood Urea Nitrogen 29.7 mg/dL (9.0-27.0); Carbon Dioxide 27.1 mmol/L (20.0-27.5); Chloride 102 mmol/L (96-109); Chol/HDL Ratio 6.93 Ratio; Glucose 146 mg/dL (70-110); LDL Cholesterol,Calculated 146.2 mg/dL (0.0-131.0); Non-African American GFR(CKD) 94.8 (60.0-200.0); Potassium 4.9 mmol/L (3.5-5.5); Sodium 138 mmol/L (135-145); Total Protein 6.1 g/dL (6.2-8.2)
== END | disposition home or self-care (01) ==
LOC: LABWHC1 07:08
PROVIDERS: ATTEND Urology
DX: E11.9 Type 2 diabetes mellitus without complications (principal); E78.00 Pure hypercholesterolemia, unspecified
CPT/HCPCS: 36415; 80053; 80061; 83036

== ENCOUNTER → 2022-10-01 | Outpatient (CLI) | payer MEDICAID ==
--- NOTE | 2022-10-02 19:46 | MM ---
Reason for Exam: Screening (asymptomatic). Last mammogram was performed 1 year(s) and 1 month(s) ago. Patient History: Menarche at age 13. First Full-Term at age 34. Late child-bearing (after 30). Postmenopausal. Hormonal Contraceptives for 12 years from age 21 until age 33. Maternal grandmother had breast cancer, age 70. Maternal aunt had breast cancer. Risk Values: Angela 5 year model risk: 2.1%. NCI Lifetime model risk: 11.2%. Prior Study Comparison: 08/31/2021 Bilateral Screening Mammogram, [facility]. 09/06/2021 Left Diagnostic Mammogram, [facility]. 04/09/2022 Left MG 3D diag mammo w/cad , [facility]. Tissue Density: There are scattered fibroglandular densities. Findings: Analyzed By CAD. Chronic nodularity in the left breast. There is no suspicious group of microcalcifications or new suspicious mass in either breast. Overall Assessment: Benign, BI-RAD 2 Management: Screening Mammogram of both breasts in 1 year. . Patient should continue monthly self-breast exams. A clinical breast exam by your physician is recommended on an annual basis. This exam should not preclude additional follow-up of suspicious palpable abnormalities. Note on Angela scores and lifetime risk: 1. A Angela score greater than 3% is considered moderate risk. If this is the case, consider specialist referral to assess eligibility for a risk reducing agent. 2. If overall lifetime risk for the development of breast cancer is 20% or higher, the patient may qualify for future screening with alternating mammogram and breast MRI. Electronically signed and approved by: Kajal Becerra M.D. Radiologist
== END | disposition home or self-care (01) ==
LOC: RADMAMWWP 06:41
PROVIDERS: ATTEND Family Medicine
DX: Z12.31 Encounter for screening mammogram for malignant neoplasm of breast (principal); Z80.3 Family history of malignant neoplasm of breast
CPT/HCPCS: 77063; 77067

== ENCOUNTER 2022-11-06 06:02 | Day surgery (SDC) | payer MEDICAID ==
[2022-11-01 14:11] VITALS: BMI 33.9
[~2022-11-06 06:02] MED LIST changes: -LACTATED RINGERS 1,000 ML IV SCH; +LIDOCAINE 1% (10MG/ML) FOR IV START INTRADERMA PRN; -LIDOCAINE 1% 20 ML VIAL (10MG/ML) FOR IV START INTRADERMA PRN
[2022-11-06 06:52] VITALS: TEMP 97.3
[2022-11-06] MEDS: LACTATED RINGERS 1,000 ML IV SCH ×2 (06:52→07:08)
[2022-11-06 07:01] LABS: Glucose,Whole Blood 134 mg/dL (70-110)
[2022-11-06] MEDS ORDERED: PROPOFOL 10 MG/ML 20 ML VIAL IV ONE (07:08)
[2022-11-06] MEDS ORDERED: MIDAZOLAM 2 MG/2 ML VIAL ONE (07:08)
[2022-11-06] MEDS ORDERED: fentaNYL (PF) 50 MCG/ML 2 ML AMP ONE (07:08)
--- NOTE | 2022-11-06 07:10 | P.GSHP ---
History of Present Illness H&P Date: 11/06/22 Chief Complaint: GERD, colon polyps 62-year-old female known to our service. 6 years ago patient had EGD showing gastritis and hiatal hernia and colonoscopy showing 2 adenomas. Here for repeat upper and lower endoscopy. No bowel complaints. Still with chronic reflux symp toms. No dysphagia. Past Medical History Past Medical History: Diabetes Mellitus, Hypertension, Osteoarthritis (OA), Thyroid Disorder Additional Past Medical History / Comment(s): anemia, chronic back pain ,arthritis in back,hypothyroid., hiatal hernia, borderline diabetes., hx of colon polyps, migraines, hx of covid June 2022 History of Any Multi-Drug Resistant Organisms: ESBL Date of last positivie culture/infection: 04/18/18 MDRO Source:: esbl urine Past Surgical History: Cholecystectomy, Tubal Ligation, Uterine Ablation Additional Past Surgical History / Comment(s): EGD,D&C, COLONOSCOPY Past Anesthesia/Blood Transfusion Reactions: Previous Problems w/ Anesthesia, Motion Sickness Additional Past Anesthesia/Blood Transfusion Reaction / Comment(s): hx of migraine post anesthesia & difficulty waking up. mother =ponv and difficulty waking up. Past Psychological History: Anxiety, Depression Smoking Status: Never smoker Past Alcohol Use History: Rare Past Drug Use History: None Reported - Past Family History Brother(s) Family Medical History: Cancer Additional Family Medical History / Comment(s): ulcerative colitis, ESOPHAGEAL AND LUNG CANCER. ANOTHER BROTHER WITH PANCREATIC CANCER Mother Family Medical History: Cancer, CVA/TIA, Myocardial Infarction ([place]) Additional Family Medical History / Comment(s): melanoma Father Family Medical History: Coronary Artery Disease (CAD) Sister(s) Additional Family Medical History / Comment(s): PRE-CANCEROUS PANCREAS Medications and Allergies Home Medications Medication Instructions Recorded Confirmed Type Cetirizine HCl [Zyrtec] 10 mg PO DAILY 12/02/14 11/06/22 History Lansoprazole [Prevacid] 30 mg PO BID 12/02/14 11/06/22 History SUMAtriptan succinate [Imitrex] 50 mg PO DAILY PRN 12/02/14 11/06/22 History Sertraline HCl [Zoloft] 200 mg PO DAILY 12/02/14 11/06/22 History Triamterene/Hydrochlorothiazid 1 cap PO DAILY 12/02/14 11/06/22 History [Dyazide 37.5-25 Capsule] metFORMIN HCL [Glucophage] 500 mg PO DAILY 12/02/14 11/06/22 History Cholecalciferol [Vitamin D3 (25 50 mcg PO DAILY 04/24/21 11/06/22 History Mcg = 1000 Iu)] Gabapentin 300 mg PO QID 04/24/21 11/06/22 History Levothyroxine Sodium [Synthroid] 150 mcg PO DAILY 04/24/21 11/06/22 History Rosuvastatin Calcium [Crestor] 5 mg PO DAILY 04/24/21 11/06/22 History Ubidecarenone [Co Q-10] 100 mg PO BID 04/24/21 11/06/22 History Aspirin [Aspirin EC] 1,000 mg PO DAILY 11/01/22 11/01/22 History Ferrous Sulfate [Iron] 325 mg PO DAILY 11/01/22 11/01/22 History Ibuprofen [Motrin Ib] 600 - 800 mg PO DIRECTED PRN 11/01/22 11/01/22 History [place]-3/Dha/Epa/Fish Oil [Fish Oil 1 each PO BID 11/01/22 11/06/22 History 1,000 mg Softgel] Vitamin B Complex 1 each PO DAILY 11/01/22 11/06/22 History Vitamin C Complex 1 dose PO DAILY 11/01/22 History busPIRone HCL 15 mg PO BID 11/01/22 11/06/22 History Allergies Allergy/AdvReac Type Severity Reaction Status Date / Time nitrofurantoin Allergy Anaphylaxis Verified 11/06/22 06:42 [From Macrobid] nitrofurantoin Allergy Anaphylaxis Verified 11/06/22 06:42 macrocrystalline [From Macrobid] Penicillins Allergy Rash/Hives Verified 11/06/22 06:42 Sulfa (Sulfonamide Allergy Rash/Hives Verified 11/06/22 06:42 Antibiotics) tramadol [From Ultram] Allergy anemia Verified 11/06/22 06:42 codeine AdvReac Nausea Verified 11/06/22 06:42 Surgical - Exam Vital Signs Temp Pulse Resp BP Pulse Ox 97.3 F L 69 16 103/56 93 L 11/06/22 06:50 11/06/22 06:50 11/06/22 06:50 11/06/22 06:50 11/06/22 06:50 Physical exam: General: Well-developed, well-nourished HEENT: Normocephalic, sclerae nonicteric Abdomen: Nontender, nondistended Extremities: No edema Neuro: Alert and oriented Results - Labs Abnormal Lab Results - Last 24 Hours (Table) 11/06/22 Range/Units 06:59 POC Glucose (mg/dL) 134 H (70-110) mg/dL Assessment and Plan (1) Colon polyp Narrative/Plan: Will proceed with upper and lower endoscopy Current Visit: Yes Status: Acute Code(s): K63.5 - POLYP OF COLON SNOMED Code(s): 62215892
--- NOTE | 2022-11-06 07:31 | P.PCN ---
Date of Procedure: 11/06/22 Procedure(s) Performed: PREOPERATIVE DIAGNOSIS: GERD, screening, history of polyps POSTOPERATIVE DIAGNOSIS: Gastritis, moderate sized hiatal hernia, diverticulosis, ascending colon polyp 2 PROCEDURE: 1. EGD with biopsy 2. Colonoscopy with snare polypectomy ANESTHESIA: [facility] SURGEON: Puma Meyers M.D. SPECIMENS: Antrum, polyps ENDOSCOPIC PROCEDURE: The patient was on the endoscopy table in the left decubitus position. The Olympus gastroscope was inserted into the oropharynx and passed under direct visualization to the region of the third portion of the duodenum. From that point the scope was slowly withdrawn inspecting all surfaces carefully. There were no neoplastic inflammatory or polypoid lesions throughout the duodenum. The pylorus was widely patent. The stomach was carefully inspected. There was mild gastritis. A biopsy of the antrum took place to rule out H. pylori. Retroflexion revealed a moderate sized hiatal hernia. The diaphragmatic hiatus was present at 40 cm while the GE junction was present at 33 cm. There was no inflammation in the stomach above the diaphragm. The esophagus was then carefully examined. There were no neoplastic inflammatory or polypoid lesions throughout the visualized esophagus. The patient was kept on the endoscopy table in the left decubitus position. The Olympus colonoscope was inserted into the anus and passed under direct visualization to the base of the cecum. The appendiceal orifice was visualized. From that point the scope was slowly withdrawn inspecting all surfaces carefully. There were no neoplastic inflammatory or polypoid lesions throughout the cecum. In the ascending colon 2 separate ulcer identified and removed using the snare with cautery technique. The remainder of the ascending transverse descending sigmoid and rectum appeared normal. There was mild left-sided diverticulosis. Digital rectal examination was normal. The patient was taken to the recovery room in stable condition per anesthesia guidelines. RECOMMENDATIONS: Await biopsy results. Repeat upper and lower endoscopy 5 years.
[2022-11-06 07:41] VITALS: PULSE 60
[2022-11-06 08:00] VITALS: BP 119/82; RESP 20
== END 2022-11-06 08:18 ==
LOC: ORWHC2ENDO 06:02
PROVIDERS: ATTEND Surgery
DX: Z12.11 Encounter for screening for malignant neoplasm of colon (principal); D12.2 Benign neoplasm of ascending colon; K31.9 Disease of stomach and duodenum, unspecified; K21.9 Gastro-esophageal reflux disease without esophagitis; K29.50 Unspecified chronic gastritis without bleeding; K44.9 Diaphragmatic hernia without obstruction or gangrene; K57.30 Diverticulosis of large intestine without perforation or abscess without bleeding; I10 Essential (primary) hypertension; E11.9 Type 2 diabetes mellitus without complications; M19.90 Unspecified osteoarthritis, unspecified site; G89.29 Other chronic pain; Z98.51 Tubal ligation status; Z86.010 Personal history of colon polyps; Z90.89 Acquired absence of other organs; Z90.49 Acquired absence of other specified parts of digestive tract
CPT/HCPCS: 43239; 88305; 45385; J2250; J3010; J2704; 43235

== ENCOUNTER → 2023-04-03 | Outpatient (CLI) | payer MEDICAID ==
--- NOTE | 2023-04-03 13:21 | XR ---
EXAMINATION TYPE: XR chest 2V DATE OF EXAM: 04/03/2023 COMPARISON: 07/06/2022 INDICATION: Cough x1 week TECHNIQUE: Frontal and lateral views of the chest are obtained. FINDINGS: The heart size is normal. The pulmonary vasculature is normal. The lungs are clear. Hiatal hernia is present. IMPRESSION: 1. No acute pulmonary process.
== END | disposition home or self-care (01) ==
LOC: RADXRMAIN 12:17
PROVIDERS: ATTEND Urology
DX: R05.9 Cough, unspecified (principal)
CPT/HCPCS: 71046

== ENCOUNTER → 2023-10-03 | Outpatient (CLI) | payer MEDICAID ==
--- NOTE | 2023-10-03 13:52 | MM ---
Reason for Exam: Screening (asymptomatic). Last screening mammogram was performed 12 month(s) ago. Patient History: Menarche at age 13. First Full-Term at age 34. Late child-bearing (after 30). Postmenopausal. Hormonal Contraceptives for 12 years from age 21 until age 33. Maternal grandmother had breast cancer, age 70. Maternal aunt had breast cancer. Risk Values: Angela 5 year model risk: 2.2%. NCI Lifetime model risk: 10.9%. Prior Study Comparison: 09/06/2021 Left Diagnostic Mammogram, [facility]. 04/09/2022 Left MG 3D diag mammo w/cad LT, [facility]. 10/01/2022 Bilateral MG 3D screening mammo w/cad, [facility]. Tissue Density: There are scattered areas of fibroglandular density. Findings: Analyzed By CAD. Right breast: There is no suspicious group of microcalcifications or new suspicious mass. Left breast: There is no suspicious group of microcalcifications or new suspicious mass. Overall Assessment: Negative, BI-RAD 1 Management: Screening Mammogram of both breasts in [address] [facility] will attempt to contact patient to return for supplemental views and ultrasound if indicated. Patient should continue monthly self-breast exams. A clinical breast exam by your physician is recommended on an annual basis. This exam should not preclude additional follow-up of suspicious palpable abnormalities. Note on Angela scores and lifetime risk: 1. A Angela score greater than 3% is considered moderate risk. If this is the case, consider specialist referral to assess eligibility for a risk reducing agent. 2. If overall lifetime risk for the development of breast cancer is 20% or higher, the patient may qualify for future screening with alternating mammogram and breast MRI. Electronically signed and approved by: Everardo Munoz DO
--- NOTE | 2023-10-03 20:05 | BD ---
EXAMINATION TYPE: Axial Bone Density DATE OF EXAM: 10/03/2023 CLINICAL HISTORY: 62 years old Female. ICD-10 CODE: Z78.0ASYMPTOMATIC MENOPAUSA Height: 64.5 in Weight: 207 lbs FRAX RISK QUESTIONS: Secondary Osteoporosis: 3. Menopause before 45: age 46 RISK FACTORS MEDICATIONS: Thyroid Medications: yes Which medication: Synthroid How Lon+ years EXAM MEASUREMENTS: Bone mineral densitometry was performed using the [employer] System. Bone mineral density as measured about the Lumbar spine is: ----- L1-L4(G/cm2): 1.371 T Score Values are as follows: ----- L1: 0.1 ----- L2: 1.2 ----- L3: 1.9 ----- L4: 2.4 ----- L1-L4: 1.6 Z Score Values are as follows: ----- L1: 0.4 ----- L2: 1.5 ----- L3: 2.2 ----- L4: 2.7 ----- L1-L4: 1.9 Bone mineral density has: Increased 2.6% since study of: 06/22/2020 Bone mineral density about the R hip (g/cm2): 1.241 Bone mineral density about the L hip (g/cm2): 1.259 T Score values are as follows: -----R Neck: 0.1 -----L Neck: 0.5 -----R Total: 1.9 -----L Total: 2.0 Z Score values are as follows: -----R Neck: 0.7 -----L Neck: 1.1 -----R Total: 2.1 -----L Total: 2.3 Bone mineral density has: Decreased -2.8% since study of: 06/22/2020 FRAX%s: The graph provided illustrates a 5.8% chance for a major osteoporotic fx and a 0.1% chance fo r the hips probability for fx in 10 years time. IMPRESSION: Normal (Values between +1 and -1 indicate normal bone mass). Consider repeating this study in 5 year s or sooner if there is some new clinical indication. NOTE: T-SCORE=SD OF THE YOUNG ADULT MEAN.
== END | disposition home or self-care (01) ==
LOC: RADMAMWWP 07:30
PROVIDERS: ATTEND Family Medicine
DX: Z12.31 Encounter for screening mammogram for malignant neoplasm of breast (principal); Z78.0 Asymptomatic menopausal state; Z80.3 Family history of malignant neoplasm of breast
CPT/HCPCS: 77063; 77067; 77080

== ENCOUNTER → 2023-12-20 | Outpatient (CLI) | payer MEDICAID | END | disposition home or self-care (01) | LOC: LABWHC1 07:54 | PROVIDERS: ATTEND Family Medicine | DX: Z53.9 Procedure and treatment not carried out, unspecified reason (principal) ==

== ENCOUNTER → 2024-03-18 | Outpatient (CLI) | payer MEDICAID ==
[2024-03-18 10:29] LABS: Microalbumin Creatinine Ratio <11 mg/g Cr (0-30)
[2024-03-18 10:37] LABS: Blood Urea Nitrogen 18.8 mg/dL (9.0-27.0); Carbon Dioxide 25.4 mmol/L (21.6-31.8); Chloride 103 mmol/L (96-109); Chol/HDL Ratio 5.59 Ratio; Glucose 158 mg/dL (70-110); Potassium 4.1 mmol/L (3.5-5.5); Sodium 141 mmol/L (135-145)
[2024-03-18 10:38] LABS: ALT 17 U/L (8-44); AST 20 U/L (13-35); Albumin 4.2 g/dL (3.8-4.9); Albumin/Globulin Ratio 1.91 Ratio (1.60-3.17); Alkaline Phosphatase 76 U/L (41-126); Globulin 2.2 g/dL (1.6-3.3); Total Bilirubin 0.3 mg/dL (0.3-1.2); Total Protein 6.4 g/dL (6.2-8.2)
== END | disposition home or self-care (01) ==
LOC: LABWHC1 07:12
PROVIDERS: ATTEND Family Medicine
DX: Z13.228 Encounter for screening for other metabolic disorders (principal); E11.9 Type 2 diabetes mellitus without complications; E78.2 Mixed hyperlipidemia; E03.9 Hypothyroidism, unspecified
CPT/HCPCS: 36415; 80053; 80061; 82043; 82570; 83036; 84443